=== PATIENT | female | born 1975 | race Caucasian/White ===

== ENCOUNTER 2016-10-05 15:39 | Emergency (ER) | payer BC ==
--- NOTE | 2016-10-05 16:05 | Emergency Department Record ---
History of Present Illness - General Chief complaint: Rash Stated complaint: RASH ITCHY Time Seen by Provider: 10/05/16 16:03 Source: Patient Mode of Arrival: Ambulatory Limitations: No limitations - History of Present Illness Initial comments: 40 yo female presents to ED with a CC of rash to the hands/wrist bilaterally associated with itching for the past 3 days. Patient reports that she is allergic to PCN, accidentally took a dose of her son's antibiotic for possible sore throat. Patient reports that she has been taking Benadryl with intermittent improvement. MD complaint: Rash Onset/Timin -: Days(s) Location: Generalized, Face, Neck, L hand, R hand, LLE, RLE, L foot, R foot Severity: Moderate Severity scale (1-10): 1 Consistency: Intermittent Improves with: Medication Worsens with: None Context: None Associated symptoms: Itching Treatments Prior to Arrival: Benadryl - Related Data Previous Rx's Medication Instructions Recorded Prednisone [Prednisone 20Mg] 20 mg PO TID #15 tab 10/05/16 Allergies Allergy/AdvReac Type Severity Reaction Status Date / Time amoxicillin [Amoxicillin] Allergy HIVES Verified 10/05/16 15:57 Travel Screening - Travel/Exposure Within Last 30 Days Have you traveled within the last 30 days?: No - Travel/Exposure Within Last Year Have you traveled outside the [place] in the last year?: No - Additonal Travel Details Have you been exposed to anyone with a communicable illness?: No - Travel Symptoms Symptom Screening: None Review of Systems Constitutional: Denies: Chills, Fever, Malaise, Night sweats Eyes: Denies: Eye discharge, Eye pain ENT: Denies: Congestion, Ear pain, Epistaxis Respiratory: Denies: Cough, Dyspnea Cardiovascular: Denies: Chest pain, Dyspnea on exertion Endocrine: Denies: Fatigue, Heat or cold intolerance Gastrointestinal: Denies: Abdominal pain, Nausea, Vomiting Genitourinary: Denies: Frequency, Hematuria Musculoskeletal: Denies: Arthralgia, Back pain, Gout, Joint swelling Skin: Reports: Rash. Denies: Bruising, Change in color Neurological: Denies: Abnormal gait, Confusion, Headache, Seizure Psychiatric: Denies: Anxiety Hematological/Lymphatic: Denies: Anemia, Blood Clots Past Medical History - SOCIAL HISTORY Smoking Status: Never smoker Alcohol Use: None Drug Use: None - RESPIRATORY Hx Respiratory Disorders: No - CARDIOVASCULAR Hx Cardio Disorders: No - NEURO Hx Neuro Disorders: No - GI Hx GI Disorders: Yes Hx Abdominal Pain: Yes Hx Hepatitis/Jaundice: Yes (at age 15 from mono) Comment:: H Pylori 4 years ago - Hx Genitourinary Disorders: No Comment:: IUD no period for several years - ENDOCRINE Hx Endocrine Disorders: No - MUSCULOSKELETAL Hx Musculoskeletal Disorders: No - PSYCH Hx Psych Problems: Yes Hx Anxiety: Yes - HEMATOLOGY/ONCOLOGY Hx Hematology/Oncology Disorders: No Family Medical History Any Significant Family History?: Yes Hx Diabetes: Father, Grandparents Hx Heart Disease: Grandparents Physical Exam - General General Appearance: Alert, Oriented x3, Cooperative, No acute distress Limitations: No limitations - Head Head exam: Atraumatic, Normocephalic, Normal inspection Head exam detail: negative: Abrasion, Contusion, Joyner's sign, General tenderness, Hematoma, Laceration - Eye Eye exam: Normal appearance. negative: Conjunctival injection, Periorbital swelling, Periorbital tenderness, Scleral icterus - ENT Ear exam: negative: Auricular hematoma, Auricular trauma Nasal Exam: negative: Active bleeding, Discharge, Dried blood, Foreign body Mouth exam: negative: Drooling, Laceration, Muffled voice, Tongue elevation - Neck Neck exam: Normal inspection. negative: Meningismus, Tenderness - Respiratory Respiratory exam: Normal lung sounds bilaterally. negative: Rales, Respiratory distress, Rhonchi, Stridor - Cardiovascular Cardiovascular Exam: Regular rate, Normal rhythm, Normal heart sounds - GI/Abdominal GI/Abdominal exam: Soft. negative: Rebound, Rigid, Tenderness - Rectal Rectal exam: Deferred - exam: Deferred - Extremities Extremities exam: negative: Calf tenderness, Pedal edema, Tenderness - Back Back exam: Denies: CVA tenderness (R), CVA tenderness (L) - Neurological Neurological exam: Alert, Normal gait, Oriented X3 - Psychiatric Psychiatric exam: Normal affect, Normal mood - Skin Skin exam: Rash, Urticaria. negative: Abrasion Type of lesion: negative: abrasion Distribution of rash: RUE, LUE Course Vital Signs 10/05/16 15:49 Temperature 98.3 F Pulse Rate 94 H Respiratory 16 Rate Blood Pressure 137/98 Pulse Ox 99 - Reevaluation(s) Reevaluation #1: 10/05/16 16:11 Patient is well appearing on examination, no respiratory distress noted, no wheezing, no throat swelling present. Patient appears stable for outpatient treatment at this time. Disposition Disposition: Discharge Clinical Impression: Urticaria Disposition: Home, Self-Care Condition: (2) Stable Instructions: Urticaria (ED) Additional Instructions: Return to ED if your symptoms worsen or if you have any concerns. Prednisone as directed. Follow-up with your family doctor in 3-5 days as directed. Prescriptions: Prednisone [Prednisone 20Mg] 20 mg PO TID #15 tab Forms: Patient Portal Access Time of Disposition: 16:05
== END 2016-10-05 16:18 | disposition home or self-care (01) ==
LOC: ER 15:39
DX: L50.9 Urticaria, unspecified (principal)
CPT/HCPCS: 99282

== ENCOUNTER 2016-10-12 07:49 | Emergency (ER) | payer BC ==
--- NOTE | 2016-10-12 08:04 | Emergency Department Record ---
History of Present Illness - General Chief complaint: Rash Stated complaint: RASH Time Seen by Provider: 10/12/16 07:57 Source: Patient, Family Mode of Arrival: Ambulatory Limitations: No limitations - History of Present Illness Initial comments: 40 yo female presents with an itching rash. She has a allergy to PCN but she took and amoxicillin tablet of her sons. She developed an itchy red rash to the arms and trunk. She was seen in the ED and treated with Prednisone. She has improved but the rash has not resolved and she completed the prednisone. No TORRES, No lip or throat swelling. No wheezing. No history of anaphylaxis. MD complaint: Rash -: Days(s) Location: Generalized Severity: Moderate Quality: Other (itching) Consistency: Constant Improves with: Other (Improved with prednisone but finished) Worsens with: Medication Context: Recent antibiotic Associated symptoms: Denies other symptoms Treatments Prior to Arrival: Benadryl, Corticosteroid - Related Data Previous Rx's Medication Instructions Recorded Prednisone [Prednisone 20Mg] 20 mg PO BID #10 tab 10/12/16 Ranitidine HCl [Zantac] 150 mg PO BID #14 tablet 10/12/16 Allergies Allergy/AdvReac Type Severity Reaction Status Date / Time amoxicillin [Amoxicillin] Allergy HIVES Verified 10/05/16 15:57 Review of Systems Constitutional: Denies: Chills, Fever, Malaise, Weakness Eyes: Denies: Eye discharge, Eye pain, Photophobia, Vision change ENT: Denies: Congestion, Throat pain Respiratory: Denies: Cough, Dyspnea, Hemoptysis, Stridor, Wheezes Cardiovascular: Denies: Chest pain, Palpitations, Syncope Endocrine: Denies: Fatigue, Polydipsia, Polyuria Gastrointestinal: Denies: Abdominal pain, Constipation, Nausea, Vomiting Genitourinary: Denies: Dysuria, Urgency Musculoskeletal: Denies: Arthralgia, Back pain, Joint swelling, Myalgia, Neck pain Skin: Reports: Change in color, Pruritus, Rash. Denies: Bruising Neurological: Denies: Headache, Weakness Psychiatric: Denies: Anxiety Hematological/Lymphatic: Denies: Blood Clots, Easy bleeding, Easy bruising, Swollen glands Past Medical History - SOCIAL HISTORY Smoking Status: Never smoker Drug Use: None - RESPIRATORY Hx Respiratory Disorders: No - CARDIOVASCULAR Hx Cardio Disorders: No - NEURO Hx Neuro Disorders: No - GI Hx GI Disorders: Yes Hx Abdominal Pain: Yes Hx Hepatitis/Jaundice: Yes (at age 15 from mono) Comment:: H Pylori 4 years ago - Hx Genitourinary Disorders: No Comment:: IUD no period for several years - ENDOCRINE Hx Endocrine Disorders: No - MUSCULOSKELETAL Hx Musculoskeletal Disorders: No - PSYCH Hx Psych Problems: Yes Hx Anxiety: Yes - HEMATOLOGY/ONCOLOGY Hx Hematology/Oncology Disorders: No Family Medical History Hx Diabetes: Father, Grandparents Hx Heart Disease: Grandparents Physical Exam - General General Appearance: Alert, Oriented x3, Cooperative, No acute distress Limitations: No limitations - Head Head exam: Normal inspection - Eye Eye exam: Normal appearance, PERRL. negative: Conjunctival injection, Periorbital swelling - ENT ENT exam: Normal exam, Mucous membranes moist Ear exam: Normal external inspection Nasal Exam: Normal inspection Mouth exam: Normal external inspection Teeth exam: Normal inspection Throat exam: Normal inspection - Neck Neck exam: Normal inspection, Full ROM. negative: Tenderness - Respiratory Respiratory exam: Normal lung sounds bilaterally. negative: Accessory muscle use, Prolonged expiratory, Respiratory distress, Wheezes - Cardiovascular Cardiovascular Exam: Regular rate, Normal rhythm, Normal heart sounds - GI/Abdominal GI/Abdominal exam: Soft. negative: Distended, Guarding, Tenderness - Rectal Rectal exam: Deferred - exam: Deferred - Extremities Extremities exam: Normal capillary refill. negative: Normal inspection, Pedal edema - Back Back exam: Reports: Normal inspection, Full ROM. Denies: Muscle spasm, Rash noted, Tenderness - Neurological Neurological exam: Alert, Normal gait, Oriented X3, Reflexes normal - Psychiatric Psychiatric exam: Normal affect, Normal mood - Skin Skin exam: Erythema, Urticaria Distribution of rash: Abdomen, Chest, RUE, LUE Course - Reevaluation(s) Reevaluation #1: No acute distress No respiratory or airway symptoms The patient reports improvement but not resolved I recommend continuing the Prednisone and adding Zantac to her OTC Benadryl. 10/12/16 08:03 Disposition Disposition: Discharge Clinical Impression: Urticaria Disposition: Home, Self-Care Condition: (1) Good Instructions: Urticaria (ED) Additional Instructions: Return if worse, swelling, short of breath Call your doctor first of the week You may need to see an fire department marine engineer in the future if you continue to reactions Prescriptions: Prednisone [Prednisone 20Mg] 20 mg PO BID #10 tab Ranitidine HCl [Zantac] 150 mg PO BID #14 tablet Forms: Patient Portal Access Time of Disposition: 08:06
[2016-10-12] MEDS ORDERED: PREDNISONE 20 MG TAB PO ONE (08:11)
== END 2016-10-12 08:23 | disposition home or self-care (01) ==
LOC: ER 07:49
DX: L50.0 Allergic urticaria (principal); T36.0X5A Adverse effect of penicillins, initial encounter
CPT/HCPCS: 99282; J7512